=== PATIENT | male | born 1965 | race Caucasian/White ===

== ENCOUNTER 2017-01-26 19:19 | Emergency (ER) | payer MEDICAID ==
[~2017-01-26] VITALS: Ht 177.8 cm; Wt 72.6 kg
[2017-01-26 21:48] VITALS: BP 134/68
[2017-01-26] MEDS ORDERED: IBUPROFEN 800 MG TAB PO ONE (22:00)
== END 2017-01-26 22:41 | disposition home or self-care (01) ==
LOC: ER 19:29
DX: K08.89 Other specified disorders of teeth and supporting structures (principal)

== ENCOUNTER 2017-10-25 21:28 | Emergency (ER) | payer MEDICAID ==
[~2017-10-25] VITALS: Ht 177.8 cm; Wt 68.0 kg
[2017-10-25 21:40] VITALS: BP 131/74
[2017-10-25 22:48] LABS: Basophils # (auto) 0 uL; Basophils % (auto) 0.6 % (0.0-2.0); Eosinophils # (auto) 0.2 uL; Eosinophils % (auto) 3.3 % (0.0-7.0); Hematocrit 41.3 % (41.0-53.0); Hemoglobin 14.3 g/dL (13.5-17.5); Lymphocytes # (auto) 2.2 uL; Lymphocytes % (auto) 33.4 % (10.0-50.0); Mean Corpuscular Hemoglobin 33.5 pg (28.0-32.0); Mean Corpuscular Hgb Conc. 34.7 g/dL (32.0-36.0); Mean Corpuscular Volume 96.7 fL (80.0-100.0); Monocytes # (auto) 0.5 uL; Monocytes % (auto) 7.9 % (0.0-12.0); Neutrophils # (auto) 3.6 uL; Neutrophils % (auto) 54.8 % (37.0-80.0); Platelet Count (auto) 240 10^3/uL (140-450); Red Blood Cells 4.27 10^6/uL (4.5-5.90); Red Cell Distribution Width 12.6 % (11.8-14.3); White Blood Cell 6.6 10^3/uL (4.4-10.8)
[2017-10-25 23:04] LABS: Albumin 4.1 g/dL (3.4-5.0); BUN/Creatinine Ratio 20.2; Calcium 8.6 mg/dL (8.5-10.1); Magnesium 2.2 mg/dL (1.6-2.6); Potassium 3.8 mmol/L (3.5-5.1)
[2017-10-25 23:06] LABS: Bilirubin, Total 0.7 mg/dL (0.2-1.0); Total Protein 7.4 g/dL (6.4-8.2)
== END 2017-10-26 01:51 | disposition left against medical advice (07) ==
LOC: ER 21:28
DX: R07.9 Chest pain, unspecified (principal); Z53.21 Procedure and treatment not carried out due to patient leaving prior to being seen by health care provider
CPT/HCPCS: 36415; 71046; 80053; 83735; 84484; 85025; 93005

== ENCOUNTER 2021-01-19 09:48 | Emergency (ER) | payer MEDICAID ==
[~2021-01-19] VITALS: Ht 170.2 cm; Wt 63.5 kg
[2021-01-19 11:30] LABS: Basophils # (auto) 0 10 ^3/uL (0-0.2); Eosinophils # (auto) 0 10 ^3/uL (0-0.8); Eosinophils % (auto) 0.3 % (0.0-7.0); Mean Corpuscular Hgb Conc. 35.5 g/dL (32.0-36.0); Monocytes # (auto) 0.3 10 ^3/uL (0-1.3)
[2021-01-19 11:33] LABS: Basophils % (auto) 0.2 % (0.0-2.0); Hematocrit 43.4 % (41.0-53.0); Hemoglobin 15.4 g/dL (13.5-17.5); Lymphocytes # (auto) 0.8 10 ^3/uL (0.4-5.4); Lymphocytes % (auto) 11.3 % (10.0-50.0); Mean Corpuscular Hemoglobin 34.4 pg (28.0-32.0); Mean Corpuscular Volume 96.8 fL (80.0-100.0); Monocytes % (auto) 4.4 % (0.0-12.0); Neutrophils # (auto) 5.9 10 ^3/uL (1.6-8.6); Neutrophils % (auto) 83.8 % (37.0-80.0); Nucleated Red Blood Cells % 0.2 %; Red Blood Cells 4.49 10^6/uL (4.5-5.90); Red Cell Distribution Width 12.6 % (11.8-14.3); White Blood Cell 7.1 10^3/uL (4.4-10.8)
[2021-01-19 11:47] LABS: Albumin 4.3 g/dL (3.4-5.0); Calcium 9.4 mg/dL (8.5-10.1); Potassium 3.8 mmol/L (3.5-5.1)
[2021-01-19 11:51] LABS: BUN/Creatinine Ratio 20.2; Bilirubin, Total 1.2 mg/dL (0.2-1.0); Total Protein 7.8 g/dL (6.4-8.2)
[2021-01-19 12:03] LABS: INR 1.01 (0.9-1.15); Partial Thromboplastin Time 26.3 sec (23.0-31.2)
[2021-01-19 12:15] VITALS: BP 135/84
== END 2021-01-19 12:26 | disposition short-term general hospital (02) ==
LOC: ER 09:48 → EDUNIT# 09:48 → EDBD 09:48 → ER 12:26
DX: G93.6 Cerebral edema (principal); F17.210 Nicotine dependence, cigarettes, uncomplicated; F12.10 Cannabis abuse, uncomplicated
CPT/HCPCS: 36415; 70450; 80053; 85025; 85610; 85730; 93005; 96365; 99285; J1953; J7060

== ENCOUNTER 2022-11-26 21:05 | Inpatient (IN) | payer MEDICAID ==
[~2022-11-26] VITALS: Ht 182.9 cm; Wt 67.0 kg
[2022-11-26] MEDS ORDERED: HYDROmorphone HCL 2 MG/ML VL/or syr IV ONE (22:45)
[2022-11-26] MEDS ORDERED: SODIUM CHLORIDE 0.9% 1,000 ML IV ONE (22:45)
[2022-11-26] MEDS ORDERED: ONDANSETRON HCL 4 MG/2 ML VIAL IV ONE (22:45)
[2022-11-26 22:58] LABS: Basophils # (auto) 0 10 ^3/uL (0-0.2); Basophils % (auto) 0.3 % (0.0-2.0); Eosinophils # (auto) 0 10 ^3/uL (0-0.8); Eosinophils % (auto) 0.1 % (0.0-7.0); Hematocrit 44.8 % (41.0-53.0); Hemoglobin 15.3 g/dL (13.5-17.5); Lymphocytes # (auto) 0.8 10 ^3/uL (0.4-5.4); Lymphocytes % (auto) 6.6 % (10.0-50.0); Mean Corpuscular Hemoglobin 31.9 pg (28.0-32.0); Mean Corpuscular Hgb Conc. 34.1 g/dL (32.0-36.0); Mean Corpuscular Volume 93.6 fL (80.0-100.0); Monocytes # (auto) 0.5 10 ^3/uL (0-1.3); Neutrophils # (auto) 10.8 10 ^3/uL (1.6-8.6); Red Blood Cells 4.79 10^6/uL (4.5-5.90); Red Cell Distribution Width 13.7 % (11.8-14.3); White Blood Cell 12.1 10^3/uL (4.4-10.8)
[2022-11-26 23:16] LABS: Calcium 8.6 mg/dL (8.5-10.1); Potassium 3.7 mmol/L (3.5-5.1)
[2022-11-26 23:22] LABS: Albumin 3.7 g/dL (3.4-5.0); BUN/Creatinine Ratio 16.1; Bilirubin, Total 0.5 mg/dL (0.2-1.0); Total Protein 7.1 g/dL (6.4-8.2)
[2022-11-27 01:58] LABS: Urine Amorphous Crystal FEW /hpf (None Seen); Urine Bacteria FEW /hpf (None Seen); Urine Blood Negative /uL (Negative); Urine Budding Yeast FEW /hpf (None Seen); Urine Specific Gravity 1.017 (1.001-1.035); Urine WBC 1 /hpf (0 - 3)
[2022-11-27] MEDS ORDERED: ONDANSETRON HCL 4 MG/2 ML VIAL IV PRN (05:00)
[2022-11-27] MEDS: HYDROcodone-ACET 5/325MG TAB PO PRN ×3 (05:42→20:55)
[2022-11-27] MEDS: PANTOPRAZOLE 40 MG TAB PO SCH (11:15)
[2022-11-27 15:32] LABS: Alcohol, Urine < 3.0 mg/dL (0-10); Barbiturate Scree,Urine NEGATIVE (NEGATIVE); Benzodiazephine Screen, Urine NEGATIVE (NEGATIVE); Cannabinoid Screen, Urine POSITIVE (NEGATIVE); Cocaine Screen, Urine NEGATIVE (NEGATIVE)
[2022-11-27 15:40] LABS: Amphetamine Screen, Urine POSITIVE (NEGATIVE); Opiate Scree,Urine NEGATIVE (NEGATIVE); Phencyclidine Screen, Urine NEGATIVE (NEGATIVE)
[2022-11-27] MEDS: ENOXAPARIN SOD 40 MG/0.4 ML SYRINGE SC SCH (17:26)
[2022-11-27] MEDS: MORPHINE SULFATE INJ 2 MG/ml SYRG IV PRN (20:37)
[2022-11-27 22:00] VITALS: BP 164/106
[2022-11-27 23:17] VITALS: BP 164/102
[2022-11-27] MEDS: TEMAZEPAM 15 MG CAP PO PRN (23:39)
[2022-11-27] MEDS: ACETAMINOPHEN 325 MG TAB PO PRN (23:39)
[2022-11-28] MEDS: MORPHINE SULFATE INJ 2 MG/ml SYRG IV PRN ×4 (01:38→22:29)
[2022-11-28 06:30] LABS: Basophils # (auto) 0 10 ^3/uL (0-0.2); Basophils % (auto) 0.3 % (0.0-2.0); Eosinophils # (auto) 0.1 10 ^3/uL (0-0.8); Eosinophils % (auto) 0.9 % (0.0-7.0); Hematocrit 42.2 % (41.0-53.0); Hemoglobin 14.5 g/dL (13.5-17.5); Lymphocytes # (auto) 1.5 10 ^3/uL (0.4-5.4); Lymphocytes % (auto) 20.3 % (10.0-50.0); Mean Corpuscular Hemoglobin 32.3 pg (28.0-32.0); Mean Corpuscular Hgb Conc. 34.4 g/dL (32.0-36.0); Mean Corpuscular Volume 93.7 fL (80.0-100.0); Monocytes # (auto) 0.6 10 ^3/uL (0-1.3); Monocytes % (auto) 7.8 % (0.0-12.0); Neutrophils # (auto) 5.2 10 ^3/uL (1.6-8.6); Neutrophils % (auto) 70.7 % (37.0-80.0); Red Cell Distribution Width 13.2 % (11.8-14.3); White Blood Cell 7.4 10^3/uL (4.4-10.8)
[2022-11-28 06:58] LABS: Albumin 3.2 g/dL (3.4-5.0); Calcium 8.2 mg/dL (8.5-10.1); Potassium 3.8 mmol/L (3.5-5.1)
[2022-11-28 07:03] LABS: BUN/Creatinine Ratio 14.6; Bilirubin, Total 0.6 mg/dL (0.2-1.0); Total Protein 6.5 g/dL (6.4-8.2)
[2022-11-28 09:00] VITALS: BP 137/86
[2022-11-28] MEDS: ENOXAPARIN SOD 40 MG/0.4 ML SYRINGE SC SCH (09:48)
[2022-11-28] MEDS: PANTOPRAZOLE 40 MG TAB PO SCH (09:48)
[2022-11-28 13:00] VITALS: BP 154/88
[2022-11-28] MEDS: HYDROcodone-ACET 5/325MG TAB PO PRN ×2 (13:57→21:25)
[2022-11-28 17:00] VITALS: BP 127/82
[2022-11-28 20:26] LABS: INR 0.99 (0.9-1.15)
[2022-11-28 22:00] VITALS: BP 154/92
[2022-11-29 05:00] VITALS: BP 127/79
[2022-11-29] MEDS: MORPHINE SULFATE INJ 2 MG/ml SYRG IV PRN ×3 (05:30→23:01)
[2022-11-29] MEDS: ENOXAPARIN SOD 40 MG/0.4 ML SYRINGE SC SCH (07:25)
[2022-11-29 09:00] VITALS: BP 128/76
[2022-11-29] MEDS: PANTOPRAZOLE 40 MG TAB PO SCH (10:00)
[2022-11-29] MEDS ORDERED: GLYCOPYRROLATE 0.2 MG/ML 1ML VIAL ONE (10:52)
[2022-11-29] MEDS ORDERED: ONDANSETRON HCL 4 MG/2 ML VIAL ONE (10:52)
[2022-11-29] MEDS ORDERED: PROPOFOL 10 MG/ML 20 ML IV ONE (10:52)
[2022-11-29] MEDS ORDERED: KETOROLAC TROMETH 30 MG/ML 1ML VIAL ONE (10:52)
[2022-11-29] MEDS ORDERED: DexAMETHasone SOD PHOS 10MG/1ML VIAL INJ ONE (10:52)
[2022-11-29] MEDS ORDERED: DexAMETHasone SOD PHOS 4 MG/1ML SDV INJ ONE (10:57)
[2022-11-29] MEDS ORDERED: EPINEPHrine HCL 1 MG/1 ML AMP ONE (10:57)
[2022-11-29] MEDS ORDERED: BUPIVACAINE 0.25% INJ 50ML VIAL ONE (10:57)
[2022-11-29] MEDS ORDERED: ceFAZolin 1GM/50ML 100 ML IV ONE (12:54)
[2022-11-29 13:00] VITALS: BP 124/74
[2022-11-29] MEDS ORDERED: ROCURONIUM 10MG/ML 10ML VIAL IV ONE (13:15)
[2022-11-29] MEDS ORDERED: SODIUM CHLORIDE LOCK 10 ML ONE (13:54)
[2022-11-29] MEDS ORDERED: fentaNYL CITRATE 100 MCG/2 ML VL ONE (13:55)
[2022-11-29] MEDS ORDERED: SUGAMMADEX 200mg/2ml Vial (100MG/ML) IV ONE (13:56)
[2022-11-29] MEDS ORDERED: fentaNYL CITRATE 100 MCG/2 ML VL IV PRN (14:30)
[2022-11-29] MEDS ORDERED: LABETALOL HCL 5 MG/ML 4ML SYRINGE IV PRN (14:30)
[2022-11-29] MEDS ORDERED: HYDROmorphone HCL 2 MG/ML VL/or syr IV PRN (14:30)
[2022-11-29] MEDS ORDERED: ONDANSETRON HCL 4 MG/2 ML VIAL IV PRN (14:30)
[2022-11-29] MEDS ORDERED: hydrALAZINE HCL 20 MG/ML VL IV PRN (14:30)
[2022-11-29] MEDS ORDERED: ePHEDrine SULFATE 50 MG/ML AMP IV PRN (14:30)
[2022-11-29] MEDS ORDERED: FLUMAZENIL 0.1 MG/ML INJ 10ML MDV IV PRN (14:30)
[2022-11-29] MEDS ORDERED: NALOXONE HCL 0.4 MG/ML VIAL IV PRN (14:30)
[2022-11-29 17:00] VITALS: BP 130/83
[2022-11-29 22:00] VITALS: BP 113/61
[2022-11-29] MEDS: ceFAZolin 2 GM in D5W 5% 100 ML IV SCH (22:36)
[2022-11-30 05:00] VITALS: BP 109/63
[2022-11-30] MEDS: ceFAZolin 2 GM in D5W 5% 100 ML IV SCH ×2 (06:15→14:38)
[2022-11-30] MEDS: HYDROcodone-ACET 5/325MG TAB PO PRN ×3 (06:20→22:42)
[2022-11-30] MEDS: PANTOPRAZOLE 40 MG TAB PO SCH (08:32)
[2022-11-30] MEDS: ENOXAPARIN SOD 40 MG/0.4 ML SYRINGE SC SCH (08:33)
[2022-11-30 09:00] VITALS: BP 102/65
[2022-11-30 13:00] VITALS: BP 101/63
[2022-11-30 17:00] VITALS: BP 125/71
[2022-11-30 20:00] VITALS: BP 118/69
[2022-11-30 22:00] VITALS: BP 118/69
[2022-12-01] MEDS: MORPHINE SULFATE INJ 2 MG/ml SYRG IV PRN ×4 (03:37→19:03)
[2022-12-01 05:00] VITALS: BP 113/70
[2022-12-01 05:01] LABS: Basophils # (auto) 0 10 ^3/uL (0-0.2); Basophils % (auto) 0.1 % (0.0-2.0); Eosinophils # (auto) 0 10 ^3/uL (0-0.8); Eosinophils % (auto) 0.4 % (0.0-7.0); Hematocrit 35.5 % (41.0-53.0); Hemoglobin 12.3 g/dL (13.5-17.5); Lymphocytes # (auto) 1.3 10 ^3/uL (0.4-5.4); Lymphocytes % (auto) 14.6 % (10.0-50.0); Mean Corpuscular Hemoglobin 32.4 pg (28.0-32.0); Mean Corpuscular Hgb Conc. 34.6 g/dL (32.0-36.0); Mean Corpuscular Volume 93.5 fL (80.0-100.0); Monocytes # (auto) 0.6 10 ^3/uL (0-1.3); Monocytes % (auto) 6.5 % (0.0-12.0); Neutrophils # (auto) 7.2 10 ^3/uL (1.6-8.6); Neutrophils % (auto) 78.4 % (37.0-80.0); Red Blood Cells 3.79 10^6/uL (4.5-5.90); Red Cell Distribution Width 13.5 % (11.8-14.3); White Blood Cell 9.2 10^3/uL (4.4-10.8)
[2022-12-01 05:33] LABS: Calcium 8.1 mg/dL (8.5-10.1); Magnesium 2.1 mg/dL (1.6-2.6); Potassium 4.3 mmol/L (3.5-5.1)
[2022-12-01 05:36] LABS: BUN/Creatinine Ratio 45.7
[2022-12-01 08:30] VITALS: BP 136/62
[2022-12-01] MEDS: ENOXAPARIN SOD 40 MG/0.4 ML SYRINGE SC SCH (09:18)
[2022-12-01] MEDS: PANTOPRAZOLE 40 MG TAB PO SCH (09:18)
[2022-12-01 13:01] VITALS: BP 122/76
[2022-12-01 16:44] VITALS: BP 110/71
[2022-12-01 20:00] VITALS: BP 126/76
[2022-12-01] MEDS: TEMAZEPAM 15 MG CAP PO PRN (21:47)
[2022-12-01] MEDS: HYDROcodone-ACET 5/325MG TAB PO PRN (21:48)
[2022-12-01 22:00] VITALS: BP 126/76
[2022-12-02 05:00] VITALS: BP 135/88
[2022-12-02] MEDS: MORPHINE SULFATE INJ 2 MG/ml SYRG IV PRN ×2 (07:48→11:05)
[2022-12-02 08:10] VITALS: BP 136/65
[2022-12-02] MEDS: ENOXAPARIN SOD 40 MG/0.4 ML SYRINGE SC SCH (09:37)
[2022-12-02] MEDS: PANTOPRAZOLE 40 MG TAB PO SCH (09:37)
[2022-12-02 11:42] VITALS: BP 123/78
[2022-12-02 16:46] VITALS: BP 134/83
[2022-12-02 22:00] VITALS: BP 105/81
[2022-12-03] MEDS: MORPHINE SULFATE INJ 2 MG/ml SYRG IV PRN ×4 (04:25→22:40)
[2022-12-03 05:00] VITALS: BP 126/81
[2022-12-03] MEDS: PANTOPRAZOLE 40 MG TAB PO SCH (10:00)
[2022-12-03] MEDS: ENOXAPARIN SOD 40 MG/0.4 ML SYRINGE SC SCH (10:00)
[2022-12-03 12:30] VITALS: BP 113/75
[2022-12-03 17:09] VITALS: BP 124/79
[2022-12-03 22:00] VITALS: BP 114/71
[2022-12-04] MEDS: HYDROcodone-ACET 5/325MG TAB PO PRN ×3 (04:18→21:18)
[2022-12-04 05:00] VITALS: BP 123/78
[2022-12-04 08:27] VITALS: BP 122/77
[2022-12-04] MEDS: PANTOPRAZOLE 40 MG TAB PO SCH (10:02)
[2022-12-04] MEDS: ENOXAPARIN SOD 40 MG/0.4 ML SYRINGE SC SCH (10:03)
[2022-12-04] MEDS: MORPHINE SULFATE INJ 2 MG/ml SYRG IV PRN (11:11)
[2022-12-04 12:14] VITALS: BP 124/82
[2022-12-04 22:22] VITALS: BP 118/73
[2022-12-05 04:35] VITALS: BP 122/75
[2022-12-05 09:09] VITALS: BP 113/67
[2022-12-05] MEDS: ENOXAPARIN SOD 40 MG/0.4 ML SYRINGE SC SCH (10:33)
[2022-12-05] MEDS: PANTOPRAZOLE 40 MG TAB PO SCH (10:33)
[2022-12-05] MEDS: HYDROcodone-ACET 5/325MG TAB PO PRN ×2 (10:34→16:07)
[2022-12-05 12:44] VITALS: BP 114/73
[2022-12-05] MEDS: MORPHINE SULFATE INJ 2 MG/ml SYRG IV PRN (15:55)
[2022-12-05 16:40] VITALS: BP 129/88
[2022-12-05 22:00] VITALS: BP 113/80
[2022-12-06 05:00] VITALS: BP 122/75
[2022-12-06 09:00] VITALS: BP 115/75
[2022-12-06] MEDS: PANTOPRAZOLE 40 MG TAB PO SCH (10:03)
[2022-12-06] MEDS: HYDROcodone-ACET 5/325MG TAB PO PRN ×2 (10:04→22:57)
[2022-12-06] MEDS: ENOXAPARIN SOD 40 MG/0.4 ML SYRINGE SC SCH (10:04)
[2022-12-06 13:00] VITALS: BP 113/70
[2022-12-06 17:00] VITALS: BP 106/67
[2022-12-06 22:00] VITALS: BP_SYST 114; BP_SYST 124; BP_DIAS 68; BP_DIAS 73
[2022-12-07] MEDS: HYDROcodone-ACET 5/325MG TAB PO PRN ×4 (03:59→21:29)
[2022-12-07 05:00] VITALS: BP 111/75
[2022-12-07 09:00] VITALS: BP 123/70
[2022-12-07] MEDS: ENOXAPARIN SOD 40 MG/0.4 ML SYRINGE SC SCH (10:33)
[2022-12-07] MEDS: PANTOPRAZOLE 40 MG TAB PO SCH (10:33)
[2022-12-07 13:00] VITALS: BP 123/75
[2022-12-07 17:00] VITALS: BP 120/77
[2022-12-07 22:00] VITALS: BP 117/72
[2022-12-08 05:00] VITALS: BP 113/75
[2022-12-08 06:10] LABS: Basophils # (auto) 0 10 ^3/uL (0-0.2); Basophils % (auto) 0.5 % (0.0-2.0); Eosinophils # (auto) 0.1 10 ^3/uL (0-0.8); Eosinophils % (auto) 1.5 % (0.0-7.0); Hematocrit 35.7 % (41.0-53.0); Lymphocytes # (auto) 1.8 10 ^3/uL (0.4-5.4); Lymphocytes % (auto) 26.1 % (10.0-50.0); Mean Corpuscular Hemoglobin 33.6 pg (28.0-32.0); Mean Corpuscular Hgb Conc. 36.3 g/dL (32.0-36.0); Mean Corpuscular Volume 92.5 fL (80.0-100.0); Monocytes # (auto) 0.4 10 ^3/uL (0-1.3); Neutrophils # (auto) 4.6 10 ^3/uL (1.6-8.6); Neutrophils % (auto) 65.9 % (37.0-80.0); Red Blood Cells 3.86 10^6/uL (4.5-5.90); Red Cell Distribution Width 13.3 % (11.8-14.3)
[2022-12-08 06:32] LABS: BUN/Creatinine Ratio 29.3; Calcium 8.9 mg/dL (8.5-10.1); Magnesium 2.3 mg/dL (1.6-2.6); Potassium 4.1 mmol/L (3.5-5.1)
[2022-12-08 09:00] VITALS: BP 117/71
[2022-12-08] MEDS: ENOXAPARIN SOD 40 MG/0.4 ML SYRINGE SC SCH (12:11)
[2022-12-08] MEDS: ACETAMINOPHEN 325 MG TAB PO PRN (12:11)
[2022-12-08] MEDS: PANTOPRAZOLE 40 MG TAB PO SCH (12:11)
[2022-12-08 13:00] VITALS: BP 135/71
[2022-12-08 16:50] VITALS: BP 122/64
[2022-12-08] MEDS: HYDROcodone-ACET 5/325MG TAB PO PRN (18:45)
[2022-12-08 22:00] VITALS: BP 113/69
[2022-12-09] MEDS: HYDROcodone-ACET 5/325MG TAB PO PRN ×4 (00:02→19:20)
[2022-12-09 05:00] VITALS: BP 116/70
[2022-12-09 08:57] VITALS: BP_SYST 137; BP_SYST 187; BP_DIAS 79; BP_DIAS 85
[2022-12-09] MEDS: PANTOPRAZOLE 40 MG TAB PO SCH (10:30)
[2022-12-09 13:00] VITALS: BP 114/67
[2022-12-09 16:36] VITALS: BP 112/72
== END 2022-12-09 19:40 | DRG 308 ==
LOC: EDBD 21:05 → ER 21:05 → OVERFLOW 11-27 04:54 → WEST WING 11-27 21:22
PROVIDERS: ADMIT Nurse Practitioner; ATTEND Internal Medicine
PROC: BQ101ZZ Fluoroscopy of Right Hip using Low Osmolar Contrast (ICD-10-PCS; 2022-11-29)
PROC: 0QS634Z Reposition Right Upper Femur with Internal Fixation Device, Percutaneous Approach (ICD-10-PCS; principal; 2022-11-29 13:15)
DX: S72.141A Displaced intertrochanteric fracture of right femur, initial encounter for closed fracture (principal); D72.829 Elevated white blood cell count, unspecified; F17.210 Nicotine dependence, cigarettes, uncomplicated; F12.90 Cannabis use, unspecified, uncomplicated; Y04.2XXA Assault by strike against or bumped into by another person, initial encounter; R73.9 Hyperglycemia, unspecified; Z20.822 Contact with and (suspected) exposure to COVID-19; Y93.89 Activity, other specified; Z88.5 Allergy status to narcotic agent; Z87.820 Personal history of traumatic brain injury; Y92.89 Other specified places as the place of occurrence of the external cause; Y99.8 Other external cause status
CPT/HCPCS: 36415; 70450; 71045; 71250; 72125; 73030; 73501; 73502; 74176; 76000; 80048; 80053; 80307; 81001; 83036; 83735; 84484; 85025; 85610; 86850; 86900; 86901; 87426; 93005; 93306; 96361; 96374; 96375; 97110; 97116; 97530; G0378; J0171; J0690; J1100; J1885; J2405; J2704; J3490; J7060

== ENCOUNTER 2025-07-29 16:43 | Emergency (ER) | payer MEDICARE, OTHER ==
[~2025-07-29] VITALS: Ht 177.8 cm; Wt 83.6 kg
[2025-07-29 18:46] VITALS: BP 149/85; PULSE 93; RESP 18; TEMP 98.1; O2SAT 97
[2025-07-29] MEDS ORDERED: DIP005TP EX (18:56)
--- NOTE | 2025-07-29 18:57 | ED.PDOC ---
History of Present Illness(SKN HPI Comments PATIENT REPORTS RASH THAT STARTED LAST NIGHT WITH ITCHINESS AND PROGRESSED THIS MORNING. REDNESS AND BUMPS NOTED ON ARMS. DENIES TOUCHING OR USING ANY NEW PRODUCTS. DENIES ANY NEW FOODS OR DRINKS. STATES HE HAS HOSPICE NURSE AT HOME WHO ADVISED HIM TO COME IN TO BE SEEN Chief Complaint: Rash Time Seen by MD: 18:18 Primary Care Provider: None History of Present Illness: Nurses Notes, Medications, Allergies Allergies: Coded Allergies: NO KNOWN ALLERGIES (Unverified , 11/29/22) Home Meds Active Scripts Betamethasone Dipropionate (Betamethasone Dipropionat) 0.05 % Cre, 1 APPLIC EX BID for 7 Days, #15 GRAMS Prov:KEELY GUERRERO UNDERWRITING ACCOUNT REPRESENTATIVE 07/29/25 Information Source: Patient Mode of Arrival: Ambulatory Past Medical History PAST MEDICAL HISTORY: Denies Surgical History: Denies all surgeries Family History Family History: Unknown Social History Smoker: Cigarettes Alcohol: Denies ETOH Use Drugs: Marijuana Lives In: Home All Other Systems: Reviewed and Negative (SEE HPI) Physical Exam General Appearance: No Apparent Distress, Normal HEENT: Pharynx Normal Neck: Full Range of Motion, Non-Tender Respiratory: Lungs Clear, No Respiratory Distress, Normal Breath Sounds Cardiovascular: No Edema, No JVD, No Murmur, No Gallop, Normal Peripheral Pulses, Regular Rate/Rhythm Breast Exam: Deferred Gastrointestinal: No Organomegaly, Non Tender, No Pulsatile Mass, Normal Bowel Sounds, Soft Genitalia: Deferred Pelvic: Deferred Rectal: Deferred Extremities: Normal capillary refill, Normal range of motion, No pedal edema Musculoskeletal : Apperance: Normal Neurologic: Alert, No Motor Deficits, Normal Affect, Normal Mood, No Sensory Deficits Cerebellar Function: Normal Reflexes: NOT DONE Skin: Dry, Normal Color, Rash (Erythemic macular rash bilateral posterior forearms non warmth to touch blanchable no noted lesions abrasions.), Warm Lymphatic: No Adenopathy Was a procedure done? Was a procedure done?: No Differential Diagnosis (INTG) Differential Diagnosis: Abrasion, Cellulitis Differential Diagnosis: Abscess X-Ray, Labs, Meds, VS Vital Signs Date Time Temp Pulse Resp B/P (MAP) Pulse Ox O2 Delivery O2 Flow Rate FiO2 07/29/25 18:46 98.1 93 18 149/85 (106) 97 98.1 07/29/25 18:46 93 18 97 Room Air 07/29/25 16:53 98.4 97 16 145/92 99 98.4 Time of 1ST Reevaluation: 18:18 Reevaluation 1ST: Unchanged Time of 2ND Reevaluation: 18:56 Reevaluation 2ND: Improved Patient Education/Counseling: Diagnosis, Treatment, Need For Follow Up Family Education/Counseling: No Family Present SEPSIS Sepsis Screen Date sepsis recognized/suspect: Jul 29, 2025 Time Sepsis recognized/suspect: 1655 Recent Procedure: No On Antibiotic Therapy: No Respiratory Rate >20: No Heart Rate >90: Yes Temp<36 C (96.8 F) or >38.3 C: No SBP <90 or MAP <65 mmHG: No New Acute Mental Status Change: No Is the patient on CPAP, BIPAP,: No Vital Signs Date Time Temp Pulse Resp B/P (MAP) Pulse Ox O2 Delivery O2 Flow Rate FiO2 07/29/25 18:46 98.1 93 18 149/85 (106) 97 98.1 07/29/25 18:46 93 18 97 Room Air 07/29/25 16:53 98.4 97 16 145/92 99 98.4 Departure 1 Departure Time of Disposition: 18:55 Impression: Primary Impression: Rash in adult Disposition: 01 HOME / SELF CARE / HOMELESS Condition: Stable e-Prescriptions Betamethasone Dipropionate (Betamethasone Dipropionat) 0.05 % Cre 1 APPLIC EX BID for 7 Days, #15 GRAMS Prov: KEELY GUERRERO 07/29/25 Discharged With: Self Critical Care Note Critical Care Time?: No Stability Stability form required: KEELY Santos Jul 29, 2025 18:57
[2025-07-29] MEDS: FAMOTIDINE 20 MG TAB PO ONE (19:36)
== END 2025-07-29 19:43 | disposition home or self-care (01) ==
LOC: ER 16:43
DX: R21 Rash and other nonspecific skin eruption (principal); F17.210 Nicotine dependence, cigarettes, uncomplicated; Z79.899 Other long term (current) drug therapy
CPT/HCPCS: 96372; 99283; J1100